=== PATIENT | male | born 1995 | race Caucasian/White ===

== ENCOUNTER 2021-10-21 18:06 | Observation (INO) ==
[2021-10-21 19:21] LABS: Basophils # (auto) 0.01 K/uL (0-0.2); Basophils % (auto) 0.1 %; Eosinophils # (auto) 0.07 K/uL (0-0.5); Hematocrit (blood only) 49.8 % (42-52); Hemoglobin 17.6 g/dL (14.0-18.0); Immature Granulocytes # (auto) 0.01 K/uL (0.00-0.02); Immature Granulocytes % (auto) 0.1 %; Lymphocytes # (auto) 2.42 K/uL (1.2-3.4); Mean Corpuscular Hemoglobin 30.1 pg (25-34); Mean Corpuscular Hgb Conc 35.3 g/dL (32-36); Mean Corpuscular Volume 85.1 fL (80-100); Mean Platelet Volume 9.5 fL (7.4-10.4); Monocytes # (auto) 0.68 K/uL (0.11-0.59); Monocytes % (auto) 9.6 %; Neutrophils # (auto) 3.92 K/uL (1.4-6.5); Neutrophils % (auto) 55.2 %; Platelet Count 196 K/uL (130-400); RDW Coefficient of Variation 13.2 % (11.5-14.5); RDW Standard Deviation 41.3 fL (36.4-46.3); Red Blood Count 5.85 M/uL (4.7-6.1); White Blood Count 7.11 K/uL (4.8-10.8)
[2021-10-21 19:33] LABS: Appearance Urine Cloudy (Clear); Bacteria Urine Automated Negative (Negative); Bilirubin Urine Negative (Negative); Blood Urine Negative (Negative); Color Urine Yellow; Epithelial Cell Urine Auto 0-5 /lpf (0-5); Glucose Urine UA Negative (Negative); Ketones Urine Trace (Negative); Leukocyte Esterase Urine Negative (Negative); Nitrite Urine Negative (Negative); Protein Urine Negative (Negative); RBC Urine Automated 0-4 /hpf (0-4); Specific Gravity Urine 1.023 (1.000-1.030); Urobilinogen Urine Negative (Negative); WBC Urine Automated 0 /hpf (0-5)
[2021-10-21 20:05] LABS: Albumin Globulin Ratio 1.9 (0.9-2); Albumin Level 4.7 gm/dl (3.4-5.0); BUN Creatinine Ratio 9.9 (10-20); Bilirubin,Total 0.6 mg/dl (0.2-1.0); Calcium 10.1 mg/dl (8.5-10.1); Creatinine Clr Calc Pharmacy 102.3 ml/min; Est GFR (African American) 105.7 ml/min; Est GFR (Non-African American) 91.2 ml/min; Globulin 2.5 gm/dl (2.5-4.0); Potassium 3.9 mmol/L (3.5-5.1); Total Protein 7.2 gm/dl (6.0-8.3)
--- NOTE | 2021-10-21 20:23 | Emergency Department Note ---
History of Present Illness General Chief complaint: GI Assessment Stated complaint: APPENDICITIS FLARE UP Time Seen by Provider: 10/21/21 20:14 Source: patient History of Present Illness Provider complaint: Right lower quadrant pain Onset (ago): month(s) 3 Location: abdomen and right Radiation: non-radiation Pain Consistency: + intermittent Maximum Pain Intensity: 2 Quality: + sharp Exacerbated By: + eating Associated symptoms: no chest pain, no cough, no fever/chills, no nausea/v omiting or no shortness of breath This is a 26-year-old male who presents with right lower quadrant pain for 3 months. He describes it as intermittent and sharp. It was associated with some vomiting 2 months ago and so he went to [facility]. He had a CAT scan at that time which showed appendicitis. They did wish to operate on him but he refused and was discharged home on antibiotics. He did finish the course of antibiotics and stated that it felt better for a few weeks but then last week on Thursday he developed worsening pain after eating. The pain has since gotten better but he was concerned that he may have appendicitis so came here for evaluation. He denies any recent vomiting or nausea. He had no fevers. He denies any cough or cold symptoms, chest pain, shortness of breath, diarrhea, black or bloody stools or urinary symptoms. Home Medications Medication Instructions Recorded Confirmed Type No Known Home Medications 10/21/21 10/21/21 History Allergies Allergy/AdvReac Type Severity Reaction Status Date / Time No Known Allergies Allergy Verified 10/21/21 20:42 Past Med/Surg History Medical History No pertinent past medical history Social History Smoking Status: Never smoker Preferred Language: Croatian Feels Safe at Home: Yes Review of Systems See HPI for pertinent positives & negatives. and A total of 10 systems reviewed and were otherwise negative Physical Exam Vital Signs Vital Signs - 24 hr 10/21/21 18:20 10/21/21 21:39 Temperature 36.4 C L Temperature Source Temporal Artery Scan Pulse Rate 90 Pulse Rate [Apical] 78 Pulse Rhythm Regular Pulse Rhythm [Apical] Regular Pulse Strength Normal Respiratory Rate 20 16 Respiratory Effort / Characteristics Non-Labored Spontaneous Spontaneous Respiratory Depth Normal Normal Respiratory Pattern Regular Blood Pressure 111/76 Blood Pressure [Left Arm] 135/87 Blood Pressure Mean 87 Blood Pressure Mean [Left Arm] 103 Blood Pressure Position Sitting Pulse Oximetry 98 99 Oxygen Delivery Method Room Air Room Air Sepsis Recent Fever Within 48 Hours No Sepsis New/Unexplained Change in Mental Status No Sepsis Action Taken by Nursing No Action Required Constitutional: Vital signs reviewed. Eyes: Pupils are equal round reactive to light. Conjunctiva are noninjected. ENT: Pharynx is clear without erythema or exudate. Mucous membranes are moist. Neck supple without meningeal signs. Respiratory: Clear to auscultation bilaterally. Breath sounds are equal bilaterally. Cardiovascular: Regular rate and rhythm. No rubs or gallops. GI: Soft, nondistended with mild right lower quadrant tenderness. There was some slight left upper quadrant tenderness as well. No guarding. Bowel sounds are present. Musculoskeletal: No peripheral edema. No lower extremity tenderness. Integumentary: No cyanosis. or jaundice. Neurological: The patient is awake and alert. No focal deficits. Psychiatric: Normal affect. Not anxious appearing. Course Administered Medications Discontinued Medications Cefoxitin Sodium (Mefoxin) 2,000 mg in 60 mls @ 100 mls/hr IV NOW STA Stop: 10/21/21 21:58 Last Admin: 10/21/21 21:39 Dose: 100 mls/hr Documented by: [id number] Ioversol (Optiray 320 100ml) 94 ml IV ONCE ONE Stop: 10/21/21 20:58 Last Admin: 10/21/21 20:57 Dose: 94 ml Documented by: [id number] Medical Decision Making Differential Diagnosis Appendicitis, abscess, perforation, ileitis, inflammatory bowel disease, irritable bowel syndrome Medical Records Attestation: I reviewed the patient's medical records. I did perform a limited focused review of portions of the patient's old chart on the electronic medical record. The patient has had no recent pertinent visits to this hospital. Home Medications Current Medication List: was personally reviewed by me Laboratory Data Attestation: I reviewed the patient's lab results. Result diagrams: 10/21/21 19:12 10/21/21 19:12 Lab Results 10/21/21 10/21/21 10/21/21 Range/Units 19:12 19:12 19:12 WBC 7.11 (4.8-10.8) K/uL RBC 5.85 (4.7-6.1) M/uL Hgb 17.6 (14.0-18.0) g/dL Hct 49.8 (42-52) % MCV 85.1 (80-100) fL MCH 30.1 (25-34) pg MCHC 35.3 (32-36) g/dL RDW Std Deviation 41.3 (36.4-46.3) fL RDW Coeff of Lety 13.2 (11.5-14.5) % Plt Count 196 (130-400) K/uL MPV 9.5 (7.4-10.4) fL Immature Gran % (Auto) 0.1 % Neut % (Auto) 55.2 % Lymph % (Auto) 34.0 % Petroleum % (Auto) 9.6 % Eos % (Auto) 1.0 % Baso % (Auto) 0.1 % Neut # (Auto) 3.92 (1.4-6.5) K/uL Lymph # (Auto) 2.42 (1.2-3.4) K/uL Petroleum # (Auto) 0.68 H (0.11-0.59) K/uL Eos # (Auto) 0.07 (0-0.5) K/uL Baso # (Auto) 0.01 (0-0.2) K/uL Immature Gran # (Auto) 0.01 (0.00-0.02) K/uL Sodium 139 (136-145) mmol/L Potassium 3.9 (3.5-5.1) mmol/L Chloride 103 (98-107) mmol/L Carbon Dioxide 28 (21-32) mmol/L Anion Gap 8 (3-11) BUN 11 (6-23) mg/dl Creatinine 1.11 (0.6-1.4) mg/dl Est Cr Clr Drug Dosing 102.3 ml/min Est GFR ( Amer) 105.7 ml/min Est GFR (Non-Af Amer) 91.2 ml/min BUN/Creatinine Ratio 9.9 L (10-20) Glucose 92 (70-99(Fasting)) mg/dl Calcium 10.1 (8.5-10.1) mg/dl Total Bilirubin 0.6 (0.2-1.0) mg/dl AST 17 (13-39) U/L ALT 14 (7-52) U/L Alkaline Phosphatase 61 (34-104) U/L Total Protein 7.2 (6.0-8.3) gm/dl Albumin 4.7 (3.4-5.0) gm/dl Globulin 2.5 (2.5-4.0) gm/dl Albumin/Globulin Ratio 1.9 (0.9-2) Lipase 21 (11-82) U/L Urine Color Yellow Urine Appearance Cloudy A (Clear) Urine pH 7.0 (4.5-7.5) Ur Specific [place] 1.023 (1.000-1.030) Urine Protein Negative (Negative) Urine Glucose (UA) Negative (Negative) Urine Ketones Trace H (Negative) Urine Blood Negative (Negative) Urine Nitrite Negative (Negative) Urine Bilirubin Negative (Negative) Urine Urobilinogen Negative (Negative) Ur Leukocyte Esterase Negative (Negative) Urine WBC (Auto) 0 (0-5) /hpf Urine RBC (Auto) 0-4 (0-4) /hpf U Hyaline Cast (Auto) 1-5 (0-5) /lpf U Epithel Cells (Auto) 0-5 (0-5) /lpf Urine Bacteria (Auto) Negative (Negative) SARS-CoV-2, RNA, NAAT (NEGATIVE) 10/21/21 Range/Units Unknown WBC (4.8-10.8) K/uL RBC (4.7-6.1) M/uL Hgb (14.0-18.0) g/dL Hct (42-52) % MCV (80-100) fL MCH (25-34) pg MCHC (32-36) g/dL RDW Std Deviation (36.4-46.3) fL RDW Coeff of Lety (11.5-14.5) % Plt Count (130-400) K/uL MPV (7.4-10.4) fL Immature Gran % (Auto) % Neut % (Auto) % Lymph % (Auto) % Petroleum % (Auto) % Eos % (Auto) % Baso % (Auto) % Neut # (Auto) (1.4-6.5) K/uL Lymph # (Auto) (1.2-3.4) K/uL Petroleum # (Auto) (0.11-0.59) K/uL Eos # (Auto) (0-0.5) K/uL Baso # (Auto) (0-0.2) K/uL Immature Gran # (Auto) (0.00-0.02) K/uL Sodium (136-145) mmol/L Potassium (3.5-5.1) mmol/L Chloride (98-107) mmol/L Carbon Dioxide (21-32) mmol/L Anion Gap (3-11) BUN (6-23) mg/dl Creatinine (0.6-1.4) mg/dl Est Cr Clr Drug Dosing ml/min Est GFR ( Amer) ml/min Est GFR (Non-Af Amer) ml/min BUN/Creatinine Ratio (10-20) Glucose (70-99(Fasting)) mg/dl Calcium (8.5-10.1) mg/dl Total Bilirubin (0.2-1.0) mg/dl AST (13-39) U/L ALT (7-52) U/L Alkaline Phosphatase (34-104) U/L Total Protein (6.0-8.3) gm/dl Albumin (3.4-5.0) gm/dl Globulin (2.5-4.0) gm/dl Albumin/Globulin Ratio (0.9-2) Lipase (11-82) U/L Urine Color Urine Appearance (Clear) Urine pH (4.5-7.5) Ur Specific [place] (1.000-1.030) Urine Protein (Negative) Urine Glucose (UA) (Negative) Urine Ketones (Negative) Urine Blood (Negative) Urine Nitrite (Negative) Urine Bilirubin (Negative) Urine Urobilinogen (Negative) Ur Leukocyte Esterase (Negative) Urine WBC (Auto) (0-5) /hpf Urine RBC (Auto) (0-4) /hpf U Hyaline Cast (Auto) (0-5) /lpf U Epithel Cells (Auto) (0-5) /lpf Urine Bacteria (Auto) (Negative) SARS-CoV-2, RNA, NAAT NEGATIVE (NEGATIVE) Imaging Data Radiologist's Impression: Abdomen/Pelvis CT 10/21/21 20:20 CT abd pelvis IV con only CLINICAL HISTORY: RLQ pain eval for appe TECHNIQUE: Helical axial images of the abdomen and pelvis were obtained and displayed. Automated dose lowering techniques and/or adjustment according to patient size were utilized for this exam. This exam was performed with intravenous contrast. COMPARISON: None available at the time of this dictation. FINDINGS: Lower chest: No acute abnormality Liver: Unremarkable. No focal lesions are seen. Gallbladder and biliary tree: No calcified gallstones. Normal caliber wall. No i ntra- or extrahepatic biliary ductal dilation. Pancreas: Unremarkable, no focal lesions. Spleen: Unremarkable. Adrenals: Unremarkable. Kidneys and ureters: Unremarkable. Bladder: Unremarkable. Reproductive organs: Unremarkable. Bowel: The appendiceal tip is mildly prominent measuring approximately 8 mm in diameter with thickened appearance of the wall. No evidence of perforation or abscess. Lymph nodes Retroperitoneal: Unremarkable. Mesenteric: Unremarkable. Pelvic: Unremarkable. Peritoneum: Normal. Vessels: Unremarkable. Abdominal wall: A fat-containing umbilical hernia is seen. Bones: Unremarkable. IMPRESSION: Findings are compatible with mild appendicitis without evidence of perforation or abscess. ACT 112: Negative or not required by law. Electronically signed by: Maykel Vergara M.D. 10/21/2021 9:12 PM MDM Narrative I did evaluate the patient as noted above. He is presenting with right lower quadrant pain intermittently for about 3 months. He was seen at [facility] 2 months ago and diagnosed with appendicitis. He refused surgery at that time and was placed on antibiotics after which she felt better for a few weeks. He had worse pain last week and was concerned that he may have appendicitis. IV access was established. I did order a urine analysis. There is trace ketones without any evidence of blood or infection. I did order and review the patient's blood work as noted in the electronic medical record. CBC is unremarkable without leukocytosis or anemia. Electrolytes and LFTs and lipase are within normal limits. After discussion with the patient, I did order a CT of the abdomen and pelvis. I did review the images myself as well as the radiology report as described above. The CAT scan demonstrates mild appendicitis without perforation or abscess. I did discuss the results with the patient. He is agreeable to operative treatment. I did order a Covid test. I did discuss the case with Dr. Latham of surgery who will come to the hospital to assess the patient. I did treat the patient with Mefoxin 2 g IV per his request. Dr. Latham did see the patient and took him to the OR for appendectomy. Covid screening was negative. Impression & Plan Acute appendicitis Discharge Plan Visit Data Chief Complaint: GI Assessment Stated Complaint: APPENDICITIS FLARE UP ED Provider: Frank Franco Discharge Problem: Acute appendicitis Patient Disposition: Being Evaluated by Surgeon Forms Stand Alone Forms: Coeurative Prescriptions Prescriptions: No Action No Known Home Medications RF: 0 Referrals Referrals: PCP,NO [Primary Care Provider] -
[2021-10-21] MEDS ORDERED: OPTIRAY 320 100ml IV ONE (20:57)
--- NOTE | 2021-10-21 21:14 | CT Scan Report ---
CT abd pelvis IV con only CLINICAL HISTORY: RLQ pain eval for appe TECHNIQUE: Helical axial images of the abdomen and pelvis were obtained and displayed. Automated dose lowering techniques and/or adjustment according to patient size were utilized for this exam. This e xam was performed with intravenous contrast. COMPARISON: None available at the time of this dictation. FINDINGS: Lower chest: No acute abnormality Liver: Unremarkable. No focal lesions are seen. Gallbladder and biliary tree: No calcified gallstones. Normal caliber wall. No intra- or extrahepatic biliary ductal dilation. Pancreas: Unremarkable, no focal lesions. Spleen: Unremarkable. Adrenals: Unremarkable. Kidneys and ureters: Unremarkable. Bladder: Unremarkable. Reproductive organs: Unremarkable. Bowel: The appendiceal tip is mildly prominent measuring approximately 8 mm in diameter with thickene d appearance of the wall. No evidence of perforation or abscess. Lymph nodes Retroperitoneal: Unremarkable. Mesenteric: Unremarkable. Pelvic: Unremarkable. Peritoneum: Normal. Vessels: Unremarkable. Abdominal wall: A fat-containing umbilical hernia is seen. Bones: Unremarkable. IMPRESSION: Findings are compatible with mild appendicitis without evidence of perforation or abscess. ACT 112: Negative or not required by law. Electronically signed by: Maykel Vergara M.D. 10/21/2021 9:12 PM
[2021-10-21] MEDS ORDERED: cefOXitin 2,000 MG/60 ML BAG IV STA (21:23)
[2021-10-21] MEDS ORDERED: ONDANSETRON INJ 2 MG/ML 2 ML VIAL ONE (22:29)
[2021-10-21] MEDS ORDERED: MIDAZOLAM HCL 1 MG/ML 2ML VIAL ONE (22:29)
[2021-10-21] MEDS ORDERED: fentaNYL citrate 100 MCG/2 ML VIAL ONE (22:29)
[2021-10-21] MEDS ORDERED: SUCCINYLCHOLINE CHLORIDE 20 MG/ML 10 ML VIAL IV ONE (22:29)
[2021-10-21] MEDS ORDERED: ROCURONIUM BROMIDE 10 MG/ML 5 ML VIAL IV ONE (22:29)
[2021-10-21] MEDS ORDERED: DEXAMETHASONE SOD INJ 4 MG/ML VIAL ONE ×2 (22:29→22:30)
[2021-10-21] MEDS ORDERED: PROPOFOL IV EMULSION 10 MG/ML 20 ML VIAL IV ONE (22:29)
[2021-10-21] MEDS ORDERED: NEOSTIGMINE METHYLSULFATE 1 MG/ML 10ML VIAL ONE (22:30)
[2021-10-21] MEDS ORDERED: GLYCOPYRROLATE 0.2 MG/ML VIAL ONE (22:30)
--- NOTE | 2021-10-21 22:46 | History & Physical Report ---
Date of Service October 21, 2021 Assessment & Plan (1) Acute appendicitis: Plan: 26-year-old gentleman with acute appendicitis. I discussed the risks and benefits of a laparoscopic, possible open appendectomy. All his questions were answered, he is agreeable to proceed. We will take him to the operating room at the earliest convenience. History of Present Illness Primary Care Provider: NO PCP 26-year-old gentleman who presents with right lower quadrant abdominal pain. The pain actually started approximately 3 months ago. He was seen at [facility] and diagnosed with acute appendicitis. He did not want to undergo surgery at that time and was placed on antibiotics for a week. He states the pain went away. Since that time he has had on and off mid to right sided abdominal pain. It worsened tonight. He did have a fever. He did have nausea. He denies chest pain or shortness of breath. CT scan demonstrates acute appendicitis. Allergies Allergy/AdvReac Type Severity Reaction Status Date / Time No Known Allergies Allergy Verified 10/21/21 20:42 Home Medications Medication Instructions Recorded Confirmed Type No Known Home Medications 10/21/21 10/21/21 History Past Med/Surg History Medical History No pertinent past medical history Social History Smoking Status: Never smoker Preferred Language: Sinhala Feels Safe at Home: Yes Review of Systems Review of Systems: All systems reviewed & are unremarkable except as noted in HPI & below Physical Exam Constitutional: WD/WN, vitals as above Neck: trachea midline, no thyromegaly Respiratory: normal respiratory effort, lungs clear to auscultation Cardiovascular: RRR, no murmur, no edema Gastrointestinal (Abdomen): Inspection/Auscultation: abdomen normal to inspection; abdomen not distended Percussion/Palpation: + abdomen tender (Right lower quadrant) and abdomen soft; no guarding and abdomen not rigid Musculoskeletal: Extremities: no cyanosis and no clubbing Skin: no rashes, warm and dry Psychiatric: A+Ox3, euthymic affect Results & Data Results & Data ([facility]) Vital Signs (Past 12 Hours) Vital Signs Temp Pulse Pulse Resp BP BP Pulse Ox 10/21/21 21:39 78 16 135/87 99 10/21/21 18:20 36.4 C L 90 20 111/76 98 Laboratory Results 10/21/21 10/21/21 10/21/21 Range/Units Unknown 19:12 19:12 WBC (4.8-10.8) K/uL RBC (4.7-6.1) M/uL Hgb (14.0-18.0) g/dL Hct (42-52) % MCV (80-100) fL MCH (25-34) pg MCHC (32-36) g/dL RDW Std Deviation (36.4-46.3) fL RDW Coeff of Lety (11.5-14.5) % Plt Count (130-400) K/uL MPV (7.4-10.4) fL Immature Gran % (Auto) % Neut % (Auto) % Lymph % (Auto) % [place] % (Auto) % Eos % (Auto) % Baso % (Auto) % Neut # (Auto) (1.4-6.5) K/uL Lymph # (Auto) (1.2-3.4) K/uL [place] # (Auto) (0.11-0.59) K/uL Eos # (Auto) (0-0.5) K/uL Baso # (Auto) (0-0.2) K/uL Immature Gran # (Auto) (0.00-0.02) K/uL Sodium 139 (136-145) mmol/L Potassium 3.9 (3.5-5.1) mmol/L Chloride 103 (98-107) mmol/L Carbon Dioxide 28 (21-32) mmol/L Anion Gap 8 (3-11) BUN 11 (6-23) mg/dl Creatinine 1.11 (0.6-1.4) mg/dl Est Cr Clr Drug Dosing 102.3 ml/min Est GFR ( Amer) 105.7 ml/min Est GFR (Non-Af Amer) 91.2 ml/min BUN/Creatinine Ratio 9.9 L (10-20) Glucose 92 (70-99(Fasting)) mg/dl Calcium 10.1 (8.5-10.1) mg/dl Total Bilirubin 0.6 (0.2-1.0) mg/dl AST 17 (13-39) U/L ALT 14 (7-52) U/L Alkaline Phosphatase 61 (34-104) U/L Total Protein 7.2 (6.0-8.3) gm/dl Albumin 4.7 (3.4-5.0) gm/dl Globulin 2.5 (2.5-4.0) gm/dl Albumin/Globulin Ratio 1.9 (0.9-2) Lipase 21 (11-82) U/L Urine Color Yellow Urine Appearance Cloudy A (Clear) Urine pH 7.0 (4.5-7.5) Ur Specific [place] 1.023 (1.000-1.030) Urine Protein Negative (Negative) Urine Glucose (UA) Negative (Negative) Urine Ketones Trace H (Negative) Urine Blood Negative (Negative) Urine Nitrite Negative (Negative) Urine Bilirubin Negative (Negative) Urine Urobilinogen Negative (Negative) Ur Leukocyte Esterase Negative (Negative) Urine WBC (Auto) 0 (0-5) /hpf Urine RBC (Auto) 0-4 (0-4) /hpf U Hyaline Cast (Auto) 1-5 (0-5) /lpf U Epithel Cells (Auto) 0-5 (0-5) /lpf Urine Bacteria (Auto) Negative (Negative) SARS-CoV-2, RNA, NAAT NEGATIVE (NEGATIVE) 10/21/21 Range/Units 19:12 WBC 7.11 (4.8-10.8) K/uL RBC 5.85 (4.7-6.1) M/uL Hgb 17.6 (14.0-18.0) g/dL Hct 49.8 (42-52) % MCV 85.1 (80-100) fL MCH 30.1 (25-34) pg MCHC 35.3 (32-36) g/dL RDW Std Deviation 41.3 (36.4-46.3) fL RDW Coeff of Lety 13.2 (11.5-14.5) % Plt Count 196 (130-400) K/uL MPV 9.5 (7.4-10.4) fL Immature Gran % (Auto) 0.1 % Neut % (Auto) 55.2 % Lymph % (Auto) 34.0 % [place] % (Auto) 9.6 % Eos % (Auto) 1.0 % Baso % (Auto) 0.1 % Neut # (Auto) 3.92 (1.4-6.5) K/uL Lymph # (Auto) 2.42 (1.2-3.4) K/uL [place] # (Auto) 0.68 H (0.11-0.59) K/uL Eos # (Auto) 0.07 (0-0.5) K/uL Baso # (Auto) 0.01 (0-0.2) K/uL Immature Gran # (Auto) 0.01 (0.00-0.02) K/uL Sodium (136-145) mmol/L Potassium (3.5-5.1) mmol/L Chloride (98-107) mmol/L Carbon Dioxide (21-32) mmol/L Anion Gap (3-11) BUN (6-23) mg/dl Creatinine (0.6-1.4) mg/dl Est Cr Clr Drug Dosing ml/min Est GFR ( Amer) ml/min Est GFR (Non-Af Amer) ml/min BUN/Creatinine Ratio (10-20) Glucose (70-99(Fasting)) mg/dl Calcium (8.5-10.1) mg/dl Total Bilirubin (0.2-1.0) mg/dl AST (13-39) U/L ALT (7-52) U/L Alkaline Phosphatase (34-104) U/L Total Protein (6.0-8.3) gm/dl Albumin (3.4-5.0) gm/dl Globulin (2.5-4.0) gm/dl Albumin/Globulin Ratio (0.9-2) Lipase (11-82) U/L Urine Color Urine Appearance (Clear) Urine pH (4.5-7.5) Ur Specific [place] (1.000-1.030) Urine Protein (Negative) Urine Glucose (UA) (Negative) Urine Ketones (Negative) Urine Blood (Negative) Urine Nitrite (Negative) Urine Bilirubin (Negative) Urine Urobilinogen (Negative) Ur Leukocyte Esterase (Negative) Urine WBC (Auto) (0-5) /hpf Urine RBC (Auto) (0-4) /hpf U Hyaline Cast (Auto) (0-5) /lpf U Epithel Cells (Auto) (0-5) /lpf Urine Bacteria (Auto) (Negative) SARS-CoV-2, RNA, NAAT (NEGATIVE) Diagnostic Findings CT abd pelvis IV con only CLINICAL HISTORY: RLQ pain eval for appe TECHNIQUE: Helical axial images of the abdomen and pelvis were obtained and displayed. Automated dose lowering techniques and/or adjustment according to patient size were utilized for this exam. This exam was performed with intravenous contrast. COMPARISON: None available at the time of this dictation. FINDINGS: Lower chest: No acute abnormality Liver: Unremarkable. No focal lesions are seen. Gallbladder and biliary tree: No calcified gallstones. Normal caliber wall. No intra- or extrahepatic biliary ductal dilation. Pancreas: Unremarkable, no focal lesions. Spleen: Unremarkable. Adrenals: Unremarkable. Kidneys and ureters: Unremarkable. Bladder: Unremarkable. Reproductive organs: Unremarkable. Bowel: The appendiceal tip is mildly prominent measuring approximately 8 mm in diameter with thickened appearance of the wall. No evidence of perforation or abscess. Lymph nodes Retroperitoneal: Unremarkable. Mesenteric: Unremarkable. Pelvic: Unremarkable. Peritoneum: Normal. Vessels: Unremarkable. Abdominal wall: A fat-containing umbilical hernia is seen. Bones: Unremarkable. IMPRESSION: Findings are compatible with mild appendicitis without evidence of perforation or abscess. (1) Acute appendicitis Acute appendicitis type: unspecified acute appendicitis type Qualified Code(s): K35.80 - Unspecified acute appendicitis
[2021-10-21] MEDS ORDERED: ePHEDrine sulfate 50 MG/ML AMP IV PRN (23:04)
[2021-10-21] MEDS ORDERED: fentaNYL citrate 100 MCG/2 ML VIAL IV PRN (23:04)
[2021-10-21] MEDS ORDERED: ATROPINE SULFATE 0.1 MG/ML 10ML SYR IV PRN (23:04)
[2021-10-21] MEDS ORDERED: ONDANSETRON INJ 2 MG/ML 2 ML VIAL IV PRN (23:04)
[2021-10-21] MEDS ORDERED: HYDROmorphone INJ 1 MG/ML SYRINGE IV PRN (23:04)
--- NOTE | 2021-10-21 23:05 | Anesthesiology Consultation ---
Date of Service October 21, 2021 Assessment & Plan (1) Encounter for pre-operative examination: Chart Review Chart Review: Acceptable Risk for Surgery and Patient NOT seen in Pre Admission Testing Consults Requested none History Surgery Operation Date: 10/21/21 23:30 Proposed Procedures p Laparoscopic Appendectomy - Elroy Latham MD Height/Weight Height: 5 ft 7 in Weight: 80.2 kg Allergies Allergy/AdvReac Type Severity Reaction Status Date / Time No Known Allergies Allergy Verified 10/21/21 20:42 Medications Home Medications Medication Instructions Recorded Confirmed Last Taken No Known Home Medications 10/21/21 10/21/21 Unknown NPO Date Last Intake of Fluids: 10/21/21 Time Last Intake of Fluids: 16:00 Last Intake of Fluids Comment: water Date Last Intake of Solids: 10/21/21 Time Last Intake of Solids: 12:00 Past Medical History Medical History No pertinent past medical history Exercise / Class Metabolic Activity II 4-5 Yardwork/Stairs/Walk up hill Past Anesthesia History No Hx of Anesthesia Complications and No Family Hx of Anesthesia Complications History of PONV No Hx of PONV and No Hx of Motion Sickness Social History Smoking Status: Never smoker Physical Exam Vital Signs Last Vital Signs Temp 36.4 C L 10/21/21 18:20 Pulse 78 10/21/21 21:39 Resp 16 10/21/21 21:39 BP 135/87 10/21/21 21:39 Pulse Ox 99 10/21/21 21:39 Testing Laboratory Results 10/21/21 19:12 10/21/21 19:12 Urine Color Yellow 10/21/21 19:12 Urine Appearance Cloudy (Clear) A 10/21/21 19:12 Urine pH 7.0 (4.5-7.5) 10/21/21 19:12 Ur Specific [place] 1.023 (1.000-1.030) 10/21/21 19:12 Urine Protein Negative (Negative) 10/21/21 19:12 Urine Glucose (UA) Negative (Negative) 10/21/21 19:12 Urine Ketones Trace (Negative) H 10/21/21 19:12 Urine Nitrite Negative (Negative) 10/21/21 19:12 Ur Leukocyte Esterase Negative (Negative) 10/21/21 19:12 Urine WBC (Auto) 0 /hpf (0-5) 10/21/21 19:12 Urine RBC (Auto) 0-4 /hpf (0-4) 10/21/21 19:12 U Hyaline Cast (Auto) 1-5 /lpf (0-5) 10/21/21 19:12 U Epithel Cells (Auto) 0-5 /lpf (0-5) 10/21/21 19:12 Urine Bacteria (Auto) Negative (Negative) 10/21/21 19:12
[2021-10-21] MEDS ORDERED: BUPIVACAINE 0.5 % 5 MG/1 ML MPF 30ML VIAL ONE (23:08)
[2021-10-21] MEDS ORDERED: EPINEPHrine INJ 1 MG/ML AMP ONE (23:08)
[2021-10-21] MEDS ORDERED: diphenhydrAMINE 50 MG/ML VIAL ONE (23:41)
--- NOTE | 2021-10-22 | Post Operative Brief Note ---
Immediate Post Op Note v1 Date of Surgery October 22, 2021 Pre & Post Diagnosis Operation Date: 10/21/21 23:30 Pre-Op Diagnosis: Acute appendicitis Post-Op Diagnosis: Acute appendicitis I identified the patient and participated in the time-out.: Yes Procedure Operation Date: 10/21/21 23:30 Actual Procedures p Laparoscopic Appendectomy - Elroy Latham MD Surgeon Elroy Latham MD Wastewater Plant Operator none Estimated Blood Loss 2 Findings Consistent with Post-Op Diagnosis acute appendicitis Drains Pham Catheter (Inserted and removed at end of case)
--- NOTE | 2021-10-22 00:01 | Operative Report ---
Post Operative Report Pre & Post Diagnosis Operation Date: 10/21/21 23:30 Pre-Op Diagnosis: Acute appendicitis Post-Op Diagnosis: Acute appendicitis I identified the patient and participated in the time-out.: Yes Procedure Operation Date: 10/21/21 23:30 Actual Procedures p Laparoscopic Appendectomy - Elroy Latham MD Surgeon Elroy Latham MD Carousel Operator none Estimated Blood Loss 2 Findings Consistent with Post-Op Diagnosis Acute appendicitis Specimens Appendix Anesthesia Type General Complications No immediate complications Description of Procedure The patient was taken to the operating room, and placed supine on the operating table. A timeout was performed, perioperative antibiotics were administered, SCD boots were placed. After adequate anesthesia and analgesia was obtained, the abdomen was prepped and draped in the normal sterile fashion. A 1 cm incision was made in the supraumbilical region and carried down to the level of the fascia. A trach hook was used to grasp the fascia and elevated and a varies needle was used to enter the abdominal cavity. The abdomen was insufflated to a pressure of 15 mmHg, and a 5 mm trocar was placed in this location. A 5 mm 30 degree laparoscope was placed into the abdominal cavity, and the abdomen was surveyed. The patient was placed in Trendelenburg and slightly to the left. One 5 mm trocar was placed in the right upper quadrant, and one 12 mm trocar was placed in the left lower quadrant under direct visualization. The right colon was identified and traced down to the cecum. The appendix was identified and elevated anteriorly and medially. A window was created at the base of the appendix with a [place] dissector. The Endo CORRINE stapler was used to transect the appendix at its base through noninflamed tissue, and subsequently the mesoappendix. The appendix was placed in an Endo Catch bag, and removed via the left lower quadrant port site. Attention was turned to hemostasis, which was excellent. The abdomen was copiously irrigated and suctioned free, and again hemostasis was found to be excellent. All trochars removed under direct visualization. The abdomen was desufflated. The fascia in the 12 mm port site was closed with a 0 Vicryl sutur e. The skin was closed with a running 4-0 Monocryl subcuticular stitch. Dermabond was applied. The patient tolerated the procedure without complication, and was transferred in stable condition to the PACU. All instrument, needle, and sponge counts were correct at the end of the case. I attest to the content of the Intraoperative Record and any orders documented therein. Any exceptions are noted below.
--- NOTE | 2021-10-22 00:24 | Anesthesiology Progress Note ---
Date of Service October 22, 2021 Anesthesia Post Procedure Vital Signs Vital Signs: Temp Pulse Pulse Resp BP BP Pulse Ox 10/21/21 21:39 78 16 135/87 99 10/21/21 18:20 36.4 C L 90 20 111/76 98 Transfer of Care Handoff Completed per policy Notes Mental Status: alert / awake / arousable and participated in evaluation Patient Amnestic to Procedure: Yes Nausea / Vomiting: adequately controlled Pain: adequately controlled Airway Patency, RR, SpO2: stable & adequate BP & HR: stable & adequate Hydration State: stable & adequate Anesthetic Complications: no major complications apparent and Pt Satisfied with anesthetic care
[2021-10-22] MEDS ORDERED: oxyCODONE/ACETAMINOPHEN 5mg/325mg TAB PO PRN (01:13)
[2021-10-22] MEDS ORDERED: PROMETHAZINE HCL 12.5 MG in SODIUM CHLORIDE 0.9% 50 ML IV PRN (01:13)
[2021-10-22] MEDS ORDERED: KETOROLAC 30 MG/ML VIAL IV PRN (01:13)
[2021-10-22] MEDS ORDERED: diphenhydrAMINE 50 MG/ML VIAL IV PRN (01:13)
[2021-10-22] MEDS ORDERED: ONDANSETRON INJ 2 MG/ML 2 ML VIAL IV PRN (01:13)
[2021-10-22] MEDS: LACTATED RINGER'S 1,000 ML IV SCH ×3 (01:20→22:20)
[2021-10-22] MEDS: MoRPHine SULFATE 2 MG/ML CARP IV PRN ×3 (01:42→10:11)
[2021-10-22] MEDS ORDERED: SODIUM CHLORIDE 0.9% 1000ML 1,000 ML IV SCH (07:45)
[2021-10-22] MEDS: ENOXAPARIN INJ 40 MG/0.4 ML SYR SQ SCH (08:11)
[2021-10-22] MEDS: KETOROLAC 30 MG/ML VIAL IV SCH ×3 (08:11→19:58)
--- NOTE | 2021-10-22 09:34 | Surgery Progress Note ---
Date of Service October 22, 2021 Assessment & Plan (1) Acute appendicitis: Plan: Postop day 1 status post lap appendectomy. He is still having some significant pain. We will monitor for now. His blood pressure was a little low, he will get a 1 L bolus of normal saline. I have encouraged him to take in more fluids. We will advance his diet as tolerated. Admission and Anticipated Discharge Date Admission Date: October 22, 2021 Subjective Postop day 1 status post lap appendectomy. He is having some pain this morning. He is having burning with urination. He denies nausea or vomiting. Physical Exam Constitutional: WD/WN, vitals as above Neck: trachea midline, no thyromegaly Gastrointestinal (Abdomen): Inspection/Auscultation: abdomen normal to inspection and + abdomen distended (Mild) Percussion/Palpation: + abdomen tender (Moderate right lower quadrant) and abdomen soft; no guarding and abdomen not rigid Musculoskeletal: Extremities: no cyanosis and no clubbing Skin: no rashes, warm and dry Psychiatric: A+Ox3, euthymic affect Results & Data ([facility]) Vital Signs (Past 12 Hours) Vital Signs Temp Pulse Pulse Resp BP BP Pulse Ox 10/22/21 08:59 118 H 93/63 L 10/22/21 07:36 124 H 121 H 81/57 L 10/22/21 07:17 36.3 C L 126 H 16 105/70 86/65 L 96 10/22/21 04:05 36.6 C 89 16 108/74 98 10/22/21 03:00 86 16 112/71 97 10/22/21 02:01 36.4 C L 69 18 112/75 98 10/22/21 01:36 36.5 C 61 18 111/69 99 10/22/21 01:22 36.6 C 61 18 111/69 99 10/22/21 00:45 61 14 108/72 96 10/22/21 00:35 36.2 C L 67 12 122/80 100 10/22/21 00:25 75 12 123/79 98 10/22/21 00:15 86 20 130/82 100 10/22/21 00:09 36.3 C L 89 20 134/77 100 10/21/21 21:39 78 16 135/87 99 (1) Acute appendicitis Acute appendicitis type: unspecified acute appendicitis type Qualified Code(s): K35.80 - Unspecified acute appendicitis
[2021-10-22 10:41] LABS: Basophils # (auto) 0.01 K/uL (0-0.2); Basophils % (auto) 0.1 %; Hematocrit (blood only) 38.3 % (42-52); Hemoglobin 12.9 g/dL (14.0-18.0); Immature Granulocytes # (auto) 0.05 K/uL (0.00-0.02); Immature Granulocytes % (auto) 0.3 %; Lymphocytes # (auto) 1.12 K/uL (1.2-3.4); Lymphocytes % (auto) 7.3 %; Mean Corpuscular Hemoglobin 28.9 pg (25-34); Mean Corpuscular Hgb Conc 33.7 g/dL (32-36); Mean Corpuscular Volume 85.7 fL (80-100); Mean Platelet Volume 9.2 fL (7.4-10.4); Monocytes % (auto) 7.8 %; Neutrophils # (auto) 13.02 K/uL (1.4-6.5); Neutrophils % (auto) 84.5 %; Platelet Count 247 K/uL (130-400); RDW Coefficient of Variation 13.4 % (11.5-14.5); Red Blood Count 4.47 M/uL (4.7-6.1)
[2021-10-22 11:01] LABS: BUN Creatinine Ratio 10.9 (10-20); Calcium 8.9 mg/dl (8.5-10.1); Creatinine Clr Calc Pharmacy 88.7 ml/min; Est GFR (African American) 88.9 ml/min; Est GFR (Non-African American) 76.7 ml/min; Potassium 4.5 mmol/L (3.5-5.1)
[2021-10-22] MEDS ORDERED: HYDROmorphone INJ 0.5 MG/0.5 ML SYR IV PRN ×2 (11:18)
[2021-10-22] MEDS: NICOTINE 14 MG/24 HR PATCH TD SCH (11:22)
--- NOTE | 2021-10-22 13:25 | Electrocardiogram Report ---
Test Reason : Blood Pressure : / mmHG Vent. Rate : 100 BPM Atrial Rate : 100 BPM P-R Int : 130 ms QRS Dur : 082 ms QT Int : 324 ms P-R-T Axes : 061 064 034 degrees QTc Int : 417 ms Normal sinus rhythm with sinus arrhythmia Normal ECG No previous ECGs available Confirmed by Caleb Wayne ([id number]) on 10/22/2021 1:25:05 PM Referred By: REFERRED SELF Confirmed By:Caleb Wayne
[2021-10-22] MEDS ORDERED: SODIUM CHLORIDE 0.9% 1000ML 1,000 ML IV STA (13:29)
--- NOTE | 2021-10-22 13:37 | XRay Report ---
XR chest 1V portable CLINICAL HISTORY: hypoxia, feeling short of breath, POD # 0 lap appy. COMPARISON STUDY: No previous studies for comparison. TECHNIQUE: 1 view of the chest FINDINGS: Single frontal view of the chest demonstrates the cardiomediastinal silhouette to be within normal li mits. There is asymmetric elevation of the right hemidiaphragm. The lungs are clear of alveolar opaci ties. There is no evidence for pleural effusion. There is no evidence for vascular congestion. There is no acute osseous pathology. IMPRESSION: 1. No acute cardiopulmonary disease. ACT 112: Negative or not required by law. Electronically signed by: Michael Carmona M.D. 10/22/2021 1:35 PM
--- NOTE | 2021-10-22 13:38 | XRay Report ---
XR KUB/Abdomen 1 view CLINICAL HISTORY: distended abdomen, severe pain, POD # 1 lap appy. COMPARISON STUDY: No previous studies for comparison. TECHNIQUE: Single view of the abdomen. FINDINGS: There are air-filled loops of both large and small bowel without evidence for disproportionate dilata tion or obstruction. The findings are most characteristic of postoperative ileus. There is no evidenc e for organomegaly or gross intra-abdominal mass. No abnormal calcifications are seen along the cours e of the urinary tracts bilaterally. No acute osseous pathology. IMPRESSION: 1.Radiographic findings most characteristic of mild postoperative ileus. ACT 112: Negative or not required by law. Electronically signed by: Michael Carmona M.D. 10/22/2021 1:37 PM
[2021-10-22] MEDS ORDERED: LORazepam 2 MG/1 ML VIAL IV STA (13:56)
[2021-10-22] MEDS ORDERED: LORazepam 2 MG/1 ML VIAL IV PRN (18:00)
[2021-10-22 21:12] LABS: Hematocrit (blood only) 31.7 % (42-52); Hemoglobin 10.9 g/dL (14.0-18.0)
--- NOTE | 2021-10-22 23:03 | Communication Note ---
Date of Service: October 22, 2021 Called to see the patient at ~2100 for generalized abdominal pain, POD1 from [facility]. Patient reports that his pain is actually mildly improved from earlier today - reports current pain at 6/10 while lying down but does not feel comfortable moving due to worsening pain. On exam the abdomen is moderately distended but not firm. Generalized tenderness to palpation most significant near surgical incision sites. No rebound tenderness or guarding. Hgb down from 17 to 12.9 post-operatively. Ordered repeat Hgb which was lower at 10.9. Ordered stat KUB without sign of pneumoperitoneum, and with likely post- operative ileus that appears unchanged from previous KUB earlier today. Continue current pain management strategy. Pain level is improved which is reassuring. I asked that the nurse contact the patient's surgeon if his abdominal pain/exam worsens. Repeat Hgb already scheduled for tomorrow AM - do not suspect active bleeding; likely post-operative changes. Also pre-operative Hgb may have been higher due to hemoconcentration in setting of dehydration due to appendicitis.
[2021-10-23] MEDS: KETOROLAC 30 MG/ML VIAL IV SCH ×2 (01:11→06:26)
[2021-10-23] MEDS: LACTATED RINGER'S 1,000 ML IV SCH (06:15)
--- NOTE | 2021-10-23 07:23 | XRay Report ---
XR KUB/Abdomen 1 view CLINICAL HISTORY: eval for pneumoperitoneum. COMPARISON STUDY: 10/22/2021 TECHNIQUE: 2 supine radiographs were obtained. FINDINGS: Compared to previous examination, increased air-filled loops of both large and small bowel are seen w ithout evidence for disproportionate dilatation or obstruction. No upright radiographs were obtained with no definite abnormal air collections to be suspicious for pneumoperitoneum. CT would be the stud y of choice for further evaluation. The current radiographic findings are again most characteristic o f postoperative ileus. There is no evidence for organomegaly or gross intra-abdominal mass. No abnorm al calcifications are seen along the course of the urinary tracts bilaterally. No acute osseous patho logy. IMPRESSION: 1.Radiographic findings most characteristic of mild postoperative ileus are again seen. Upright radio graphs or preferably CT would be the study of choice to evaluate for pneumoperitoneum. ACT 112: Negative or not required by law. Electronically signed by: Micheal Carmona M.D. 10/23/2021 7:21 AM
[2021-10-23 07:29] LABS: Basophils # (auto) 0.01 K/uL (0-0.2); Basophils % (auto) 0.2 %; Eosinophils # (auto) 0.03 K/uL (0-0.5); Eosinophils % (auto) 0.5 %; Hematocrit (blood only) 27.1 % (42-52); Hemoglobin 9.1 g/dL (14.0-18.0); Immature Granulocytes # (auto) 0.01 K/uL (0.00-0.02); Immature Granulocytes % (auto) 0.2 %; Lymphocytes # (auto) 1.92 K/uL (1.2-3.4); Lymphocytes % (auto) 33.6 %; Mean Corpuscular Hgb Conc 33.6 g/dL (32-36); Mean Corpuscular Volume 86.3 fL (80-100); Monocytes # (auto) 0.64 K/uL (0.11-0.59); Monocytes % (auto) 11.2 %; Neutrophils % (auto) 54.3 %; Platelet Count 162 K/uL (130-400); RDW Coefficient of Variation 13.7 % (11.5-14.5); RDW Standard Deviation 43.6 fL (36.4-46.3); Red Blood Count 3.14 M/uL (4.7-6.1); White Blood Count 5.71 K/uL (4.8-10.8)
[2021-10-23 07:58] LABS: BUN Creatinine Ratio 12.6 (10-20); Calcium 8.5 mg/dl (8.5-10.1); Creatinine Clr Calc Pharmacy 110.3 ml/min; Est GFR (African American) 115.7 ml/min; Est GFR (Non-African American) 99.8 ml/min; Potassium 3.8 mmol/L (3.5-5.1)
[2021-10-23] MEDS: ENOXAPARIN INJ 40 MG/0.4 ML SYR SQ SCH (08:39)
[2021-10-23] MEDS: NICOTINE 14 MG/24 HR PATCH TD SCH (08:44)
[2021-10-23] MEDS ORDERED: ACETAMINOPHEN 325 MG TAB PO PRN (08:47)
--- NOTE | 2021-10-23 08:53 | Surgery Progress Note ---
Date of Service October 23, 2021 Assessment & Plan (1) Acute appendicitis: (2) Hematoma: Plan: POD # 2 s/p laparoscopic appendectomy - afebrile, vss, hypotensive but asymptomatic - prior epsidoe of severe stabbing spasms have resolved - now with LLQ hematoma, no peritonitis on exam - Hgb 9.1 (10.9 <-- 12.9 <-- 17 (preop)), no signs of active bleeding on exam. LIkely somewhat dilutional given fluid bolus and IV fluids for hypotension yesterday - + flatus - ambulating well Plan: will stop the IV Torald and IV lovenox given the hematoma abdominal binder reg diet ambulate incentive scds Po Tylenol and percocet prn pain Dr. Latham has seen and examined pt, agrees with above. Admission and Anticipated Discharge Date Admission Date: October 22, 2021 Subjective feeling much better today, no similar episodes of severe stabbing pain as yesterday ambulating hallway this morning passing flatus no dizziness , or lightheadedness no shortness of breath , chest pain or pressure has swelling and bruising in left lower abdomen, seems better today Physical Exam Constitutional: WD/WN, vitals as above no acute distress and not ill appearing Neck: normal visual inspection and trachea midline Respiratory: normal respiratory effort and + cough; no respiratory distress, no labored breathing and no retractions Cardiovascular: Rate/Rhythm: regular rate and regular rhythm Gastrointestinal (Abdomen): Inspection/Auscultation: normal bowel sounds and + abdominal surgical incision (clean, dry,intact); abdomen not distended Percussion/Palpation: + abdomen tender (LLQ and generalized) and abdomen soft; no guarding and abdomen not rigid There is ecchymosis of the LLQ surrounding LLQ incision with extension to left flank and left groin. Tender to palpation. Results & Data ([facility]) Vital Signs (Past 12 Hours) Vital Signs Temp Pulse Pulse Pulse Resp BP Pulse Ox 10/23/21 07:00 36.5 C 86 18 93/57 L 99 10/23/21 06:47 98 H 10/23/21 04:08 36.5 C 91 H 20 92/54 L 99 10/22/21 23:32 36.8 C 113 H 24 109/66 100 10/22/21 20:54 36 C L 112 H 18 111/68 98 Laboratory Results 10/23/21 10/23/21 10/22/21 Range/Units 06:53 06:53 20:55 WBC 5.71 (4.8-10.8) K/uL RBC 3.14 L (4.7-6.1) M/uL Hgb 9.1 L 10.9 L (14.0-18.0) g/dL Hct 27.1 L 31.7 L (42-52) % MCV 86.3 (80-100) fL MCH 29.0 (25-34) pg MCHC 33.6 (32-36) g/dL RDW Std Deviation 43.6 (36.4-46.3) fL RDW Coeff of Lety 13.7 (11.5-14.5) % Plt Count 162 (130-400) K/uL MPV 9.0 (7.4-10.4) fL Immature Gran % (Auto) 0.2 % Neut % (Auto) 54.3 % Lymph % (Auto) 33.6 % [place] % (Auto) 11.2 % Eos % (Auto) 0.5 % Baso % (Auto) 0.2 % Neut # (Auto) 3.10 (1.4-6.5) K/uL Lymph # (Auto) 1.92 (1.2-3.4) K/uL [place] # (Auto) 0.64 H (0.11-0.59) K/uL Eos # (Auto) 0.03 (0-0.5) K/uL Baso # (Auto) 0.01 (0-0.2) K/uL Immature Gran # (Auto) 0.01 (0.00-0.02) K/uL Sodium 139 (136-145) mmol/L Potassium 3.8 (3.5-5.1) mmol/L Chloride 106 (98-107) mmol/L Carbon Dioxide 31 (21-32) mmol/L Anion Gap 2 L (3-11) BUN 13 (6-23) mg/dl Creatinine 1.03 (0.6-1.4) mg/dl Est Cr Clr Drug Dosing 110.3 ml/min Est GFR ( Amer) 115.7 ml/min Est GFR (Non-Af Amer) 99.8 ml/min BUN/Creatinine Ratio 12.6 (10-20) Glucose 92 (70-99(Fasting)) mg/dl Calcium 8.5 (8.5-10.1) mg/dl 10/22/21 10/22/21 Range/Units 10:24 10:24 WBC 15.40 H (4.8-10.8) K/uL RBC 4.47 L (4.7-6.1) M/uL Hgb 12.9 L D (14.0-18.0) g/dL Hct 38.3 L (42-52) % MCV 85.7 (80-100) fL MCH 28.9 (25-34) pg MCHC 33.7 (32-36) g/dL RDW Std Deviation 42.0 (36.4-46.3) fL RDW Coeff of Lety 13.4 (11.5-14.5) % Plt Count 247 (130-400) K/uL MPV 9.2 (7.4-10.4) fL Immature Gran % (Auto) 0.3 % Neut % (Auto) 84.5 % Lymph % (Auto) 7.3 % [place] % (Auto) 7.8 % Eos % (Auto) 0.0 % Baso % (Auto) 0.1 % Neut # (Auto) 13.02 H (1.4-6.5) K/uL Lymph # (Auto) 1.12 L (1.2-3.4) K/uL [place] # (Auto) 1.20 H (0.11-0.59) K/uL Eos # (Auto) 0.00 (0-0.5) K/uL Baso # (Auto) 0.01 (0-0.2) K/uL Immature Gran # (Auto) 0.05 H (0.00-0.02) K/uL Sodium 136 (136-145) mmol/L Potassium 4.5 (3.5-5.1) mmol/L Chloride 105 (98-107) mmol/L Carbon Dioxide 27 (21-32) mmol/L Anion Gap 4 (3-11) BUN 14 (6-23) mg/dl Creatinine 1.28 (0.6-1.4) mg/dl Est Cr Clr Drug Dosing 88.7 ml/min Est GFR ( Amer) 88.9 ml/min Est GFR (Non-Af Amer) 76.7 ml/min BUN/Creatinine Ratio 10.9 (10-20) Glucose 141 H (70-99(Fasting)) mg/dl Calcium 8.9 (8.5-10.1) mg/dl (1) Acute appendicitis Acute appendicitis type: unspecified acute appendicitis type Qualified Code(s): K35.80 - Unspecified acute appendicitis
--- NOTE | 2021-10-30 09:12 | Discharge Summary ---
Date of Service October 30, 2021 Admission HPI Per Admitting Provider 26-year-old gentleman who presents with right lower quadrant abdominal pain. The pain actually started approximately 3 months ago. He was seen at [facility] and diagnosed with acute appendicitis. He did not want to undergo surgery at that time and was placed on antibiotics for a week. He states the pain went away. Since that time he has had on and off mid to right sided abdominal pain. It worsened tonight. He did have a fever. He did have nausea. He denies chest pain or shortness of breath. CT scan demonstrates acute appendicitis. Principal Diagnosis acute appendicitis Discharge Data Allergies Allergy/AdvReac Type Severity Reaction Status Date / Time No Known Allergies Allergy Verified 10/21/21 20:42 Procedures Performed Operation Date: 10/21/21 23:30 Actual Procedures p Laparoscopic Appendectomy - Elroy Latham MD Ordered Studies 10/21/21 20:20 CT abd pelvis IV con only Stat Hospital Course (1) Acute appendicitis: 26-year-old admitted to the hospital with acute appendicitis. He was taken to the operating room for a laparoscopic appendectomy the details of which are dictated as separate operative note. Postoperatively he had some muscle spasm and gas pain which resolved over the course of the 1st postoperative day. Pain was controlled with IV pain medications. DVT prophylaxis with SCDs and subcutaneous Lovenox. Incentive spirometry and aggressive pulmonary toilet were affected of while he was in the hospital. Diet was advanced as tolerated. By postoperative day 2 he was tolerating regular diet, not requiring IV pain medications, was discharged home in stable condition. He is to follow-up in 1 week. Total Time Total Time Spent Total Time Spent (In Minutes): 30 minutes Discharge Plan Discharge Items Patient Disposition: Home - Self-Care Reason For Visit: ACUTE APPENDICITIS Discharge Diagnosis: Acute appendicitis Hematoma of left lower abdomen Activity: Per Instructions section Non-emergency contact: Surgeon Call non-emergency contact if: you have any medication questions, your pain is not controlled, your pain is worsening, your pain is concerning for you, you have a fever, your temperature is above 101, your wound has increased redness, your wound has increased drainage and your wound pain has increased Follow-up/Referrals: Elroy Latham MD [Physician] - (Follow-up in office in 1 week) PCP,NO [Primary Care Provider] - Diet: Regular Addtl Attending Provider Instructions: Post-Surgical ~Discharge Instructions Activity Recommendations: - lifting limitation: (10 pounds for at least 2 weeks), - exercise/sex/sports limit: (nonstrenuous for 2 weeks), - driving or machine use limit: (none for 1 week, until pain free, or no longer taking narcotic pain medication), - Shower/bathe limit: (may shower beginning tonight) - No strenuous activity or heavy lifting until cleared by surgery team given the hematoma. Recommend walking regularly to prevent blood clots from forming in your legs that can travel to your lungs and be deadly. Regular walking will help increase your GI motility to get your bowels moving. Diet: - Resume previous diet SPECIAL CARE INSTRUCTIONS: - May shower tonight. Let water run over area and pat dry. - No submerging incisions underwater for 2 weeks - Surgical glue on incisions will fall off on its own. DO NOT pick at it, this can cause infection. - Call the surgeon's office with any questions or concerns - - (ex. temperature higher than 101 degrees F, excessive bleeding or pain). MEDICATIONS: - Resume previous medications unless instructed otherwise by your surgeon. - May take extra strength Tylenol every 6 hours as needed for mild to moderate pain -500 to 650 mg of Tylenol every 6 hours as needed - AVOID NSAIDS (Aleve, Ibuprofen, Motrin, Aspirin) given the hematoma as these can cause increase in bleeding. - Recommend daily stool softener (Colace) to prevent constipation and straining given abdominal surgery and hematoma. FOLLOW UP VISIT: - If not already scheduled, please call the office to schedule a one week follow-up appointment. Office number Your blood pressure was low during your hospital stay at times. This could have been to multiple factors (anesthesia, normally low blood pressure, and vagal response to severe pain). Monitor for any dizziness or lightheadedness. You also developed some bleeding in the abdominal wall near the left lower incision site with a drop in your hemoglobin (blood level). You should monitor for increase in pain in the abdomen near the left lower incision, swelling, rapidly increase in bruising, fever, chills, dizziness, lightheadedness, shortness of breath. AVOID any NSAIDs as stated above as these can cause increase in bleeding. Wear abdominal binder and compression underwear to help compress the area. Bruising will probably spread down the groin and into the upper thigh and scrotum given gravity. Any questions/concerns please call office at [phone] Pending Studies at Discharge: Yes (Appendix pathology, will be reviewed at follow-up visit) Stand-Alone Forms: [facility], Work/School Release, Smoking Cessation Medications and DC Order Prescriptions: No Action No Known Home Medications RF: 0 Discharge Orders: Discharge Order (Routine); Ordered 10/23/21 Ordered By: Sameera Drummond Admission Data Admit Date/Time: 10/22/21 00:04 Attending Provider: Elroy Latham Admit Provider: Elroy Latham Primary Care Provider: PCP,NO Other Interventions: Discharge Summary Assessment (RN) Last Done: 10/23/21 15:17
== END 2021-10-23 16:03 | disposition home or self-care (01) ==
LOC: ED 18:06 → OR 22:58 → 3E 22:58 → 2N 10-22 14:44